=== PATIENT | male | born 1980 | race Caucasian/White ===

== ENCOUNTER 2016-06-17 17:29 | Emergency (ER) | payer BC ==
[2016-06-17] MEDS ORDERED: LIDOCAINE 1% 2 ML VIAL ONE (18:42)
== END 2016-06-17 19:12 | disposition home or self-care (01) ==
DX: S61.210A Laceration without foreign body of right index finger without damage to nail, initial encounter (principal); W45.8XXA Other foreign body or object entering through skin, initial encounter; Y93.H3 Activity, building and construction; Y92.008 Other place in unspecified non-institutional (private) residence as the place of occurrence of the external cause; R03.0 Elevated blood-pressure reading, without diagnosis of hypertension

== ENCOUNTER 2018-01-16 12:21 | Emergency (ER) | payer BC ==
[2018-01-16 12:35] VITALS: BP 144/77
--- NOTE | 2018-01-16 13:18 | ED Physician Documentation ---
PD HPI OPHTHO - Stated complaint Stated Complaint: L EYE F/O - Chief complaint Chief Complaint: Heent - History obtained from History obtained from: Patient - History of Present Illness Timing - onset: Today Timing - duration: Hours Timing - details: Abrupt onset (was sawing wood and got some sawdust blown into eyes with some wind christopher. Still has feeling of FB left eye.) Location: Left Quality / character: Aching Associated symptoms: FB sensation. No: Redness, Swelling, Decreased vision Contributing factors: FB (sawdust) Similar symptoms before: Has not had sx before Recently seen: Not recently seen Review of Systems Eyes: reports: Irritation. denies: Loss of vision, Decreased vision, Photophobia, Discharge Nose: denies: Rhinorrhea / runny nose, Congestion, Sinus pressure / pain Throat: denies: Sore throat Respiratory: denies: Cough PD PAST MEDICAL HISTORY - Past Medical History Respiratory: Asthma - Past Surgical History Past Surgical History: Yes General: Hiatal hernia repair, Other - Present Medications Home Medications: Ambulatory Orders Medication Instructions Recorded Confirmed Albuterol [Ventolin Hfa] 2 puffs INH Q4H PRN 05/18/13 05/18/13 Albuterol [Ventolin Hfa] 2 puffs INH Q4H PRN #1 inhaler 05/18/13 Budesonide [Pulmicort] 0.25 mg IH PRN 05/18/13 05/18/13 predniSONE [Deltasone] 60 mg PO DAILY 5 Days tablet 05/18/13 - Allergies Allergies/Adverse Reactions: Allergies Allergy/AdvReac Type Severity Reaction Status Date / Time loratadine [From Claritin] Allergy Respiratory Verified 05/18/13 00:16 - Social History Does the pt smoke?: No Smoking Status: Never smoker Does the pt drink ETOH?: No Does the pt have substance abuse?: No - Immunizations Immunizations are current?: Yes - POLST Patient has POLST: No PD ED PE NORMAL - Vitals Vital signs reviewed: Yes - General General: Alert and oriented X 3, No acute distress, Well developed/nourished - HEENT HEENT: PERRL, EOMI PD ED PE EXPANDED - Eyes Eyes: Eyelid embedded FB (underside lateral, swept away with qtip. ), Corneal abrasion (small at lateral upper area. ), Fluorescein uptake. No: Injected conj/sclera, Exudate, Corneal FB Results - Vitals Vitals: Oxygen O2 Source Room air PD MEDICAL DECISION MAKING - ED course Complexity details: considered differential, d/w patient Departure - Departure Disposition: 01 Home, Self Care Clinical Impression: Corneal foreign body Qualifiers: Encounter type: initial encounter Laterality: left Qualified Code(s): T15.02XA - Foreign body in cornea, left eye, initial encounter Corneal abrasion Qualifiers: Encounter type: initial encounter Laterality: left Qualified Code(s): S05.02XA - Injury of conjunctiva and corneal abrasion without foreign body, left eye, initial encounter Condition: Stable Record reviewed to determine appropriate education?: Yes Instructions: ED Eye Injury Corneal Abrasion Comments: Keep your eyes protected. Try to avoid dust and wind today. There is a small piece of wood that I swept out from under the lid and there is an abrasion on the surface of the eye. That should not prove over the day or so. Use the numbing drops if needed for discomfort. Do not use them if he can be out doing work. Do not use them more than a day or 2 as if it still bothering you at that point he need to recheck. Discharge Date/Time: 01/16/18 13:44
== END 2018-01-16 13:44 | disposition home or self-care (01) ==
LOC: ED 12:21
DX: T15.02XA Foreign body in cornea, left eye, initial encounter (principal); S00.252A Superficial foreign body of left eyelid and periocular area, initial encounter; X58.XXXA Exposure to other specified factors, initial encounter
CPT/HCPCS: 99282

== ENCOUNTER 2019-06-11 16:19 | Emergency (ER) | payer BC, OTHER ==
--- NOTE | 2019-06-11 16:21 | ED Physician Documentation ---
PD HPI UPPER EXT INJURY - Stated complaint Stated Complaint: RT INDEX FINGER LAC - History obtained from History obtained from: Patient - History of Present Illness Location: Right, Finger Type of injury: Laceration (He is working on some machinery and his tool slipped and his finger caught against a sharp edge of metal. Had a laceration out was still bleeding despite direct pressure. He denies any weakness of the finger movement. He states there is a slight numb spot just distal to the laceration on the dorsal middle phalanx. The laceration is on the radial side dorsal aspect just at the PIP joint.) Where injury occurred: Home Timing - onset: Today Timing - details: Abrupt onset Worsened by: Moving, Palpating Associated symptoms: Numbness (small patch numb just distal to the laceration around middle phalanx radial side.). No: Weakness Contributing factors: No: Anticoagulated Similar symptoms before: Has not had sx before Review of Systems Constitutional: denies: Fever, Chills Throat: denies: Sore throat Respiratory: denies: Cough Skin: reports: Laceration (s) Neurologic: denies: Focal weakness PD PAST MEDICAL HISTORY - Past Medical History Respiratory: Asthma - Past Surgical History Past Surgical History: Yes General: Hiatal hernia repair, Other - Present Medications Home Medications: Ambulatory Orders Medication Instructions Recorded Confirmed Albuterol [Ventolin Hfa] 2 puffs INH Q4H PRN 05/18/13 05/18/13 Albuterol [Ventolin Hfa] 2 puffs INH Q4H PRN #1 inhaler 05/18/13 Budesonide [Pulmicort] 0.25 mg IH PRN 05/18/13 05/18/13 predniSONE [Deltasone] 60 mg PO DAILY 5 Days tablet 05/18/13 - Allergies Allergies/Adverse Reactions: Allergies Allergy/AdvReac Type Severity Reaction Status Date / Time No Known Drug Allergies Allergy Verified 06/11/19 16:26 - Social History Does the pt smoke?: No Smoking Status: Never smoker Does the pt drink ETOH?: No Does the pt have substance abuse?: No - Immunizations Immunizations are current?: Yes - POLST Patient has POLST: No PD ED PE NORMAL - Vitals Vital signs reviewed: Yes - General General: Alert and oriented X 3, Well developed/nourished - Derm Derm: Normal color, Warm and dry - Neuro Neuro: Alert and oriented X 3, No motor deficit, Normal speech, Other (The patient has a laceration on the radial dorsal aspect at the proximal phalanx which is 1-1/2 cm and opens to the fatty tissue layer. No deep structures are identified. He has 5 out of 5 strength for extension and abduction showing abduction. There are no foreign bodies noted. There is still mild ongoing bleeding. There is 1 cm rounded area of numbness to pinprick just distal to the laceration. He has normal sensation at the tip.) Results - Vitals Vitals: Vital Signs - 24 hr 06/11/19 16:22 Temperature 36.5 C Heart Rate 78 Respiratory 16 Rate Blood Pressure 139/83 H O2 Saturation 95 Oxygen O2 Source Room air Procedures - Laceration (location) right index finger Length in cm: 1.5 Wound type: Curved Neurovascular status: Motor intact, Vascular intact Tendon involvement: Tendon intact Anesthesia: Lidocaine 1% with epi Wound Preparation: Irrigated copiously NS, Wound explored, To the base. No: FB identified Skin layer closure: Nylon, Running, Size #-0 - enter number (4), Sutures - enter # (6) Other: Patient tolerated well, No complications, Neurovascular intact, Dressing applied, Tetanus UTD (he believes it was less than 5 years) Complexity: Simple PD MEDICAL DECISION MAKING - ED course Complexity details: considered differential, d/w patient Departure - Departure Disposition: 01 Home, Self Care Clinical Impression: Finger laceration Qualifiers: Encounter type: initial encounter Finger: index finger Damage to nail status: without damage Foreign body presence: without foreign body Laterality: right Qualified Code(s): S61.210A - Laceration without foreign body of right index finger without damage to nail, initial encounter Condition: Stable Record reviewed to determine appropriate education?: Yes Instructions: ED Laceration Hand Follow-Up: Mary Jo Bundy MD [Primary Care Provider] - Comments: It is okay to wash and shower. Clean off the wound twice a day with soap and water, or peroxide and water. Apply some antibiotic ointment to it to keep it moist. Also to watch for signs of infection such as purulence, redness or increasing pain. Return to your primary care or the ER at the specified time for suture removal. Suture removal 9 or 10 days. Gentle use of the finger initially for couple of days and then on to regularly use progressively is okay.
[2019-06-11 16:26] VITALS: BP 139/83
== END 2019-06-11 17:20 | disposition home or self-care (01) ==
LOC: ED 16:19
DX: S61.210A Laceration without foreign body of right index finger without damage to nail, initial encounter (principal); W26.9XXA Contact with unspecified sharp object(s), initial encounter; Y93.89 Activity, other specified; Y92.009 Unspecified place in unspecified non-institutional (private) residence as the place of occurrence of the external cause
CPT/HCPCS: 12001; 99282; 99283

== ENCOUNTER 2020-09-21 03:12 | Emergency (ER) | payer OTHER ==
--- NOTE | 2020-09-21 03:28 | ED Physician Documentation ---
PD HPI HEENT - Stated complaint Stated Complaint: CHILLS/SORE THROAT - History obtained from History obtained from: Patient - History of Present Illness Timing - onset: How many days ago (3) Timing - duration: Days (3) Timing - details: Gradual onset, Still present Location: Right ear, Left ear, Throat Improves: Medication Worsens: Swalllowing Associated symptoms: Congestion, Rhinorrhea, Headache, Other (shaking chills and myalgias) Similar symptoms before: Diagnosis (tonsillits) Recently seen: Not recently seen - Additional information Additional information: 40-year-old male with a remote history of recurrent tonsillitis has symptoms consistent with what is had previously with tonsillitis. He has a sore throat and is developed some muscle aches and pains and this evening when he developed chills excessively his asked him to come to the emergency department to be evaluated. He has had his Covid vaccinations and he is worried about the possibility of Covid. Review of Systems Constitutional: reports: Chills, Myalgias, Fatigue, Sweats. denies: Fever Eyes: denies: Decreased vision Ears: reports: Ear pain Nose: reports: Rhinorrhea / runny nose, Congestion Throat: reports: Sore throat Cardiac: denies: Chest pain / pressure, Palpitations Respiratory: denies: Dyspnea, Cough GI: denies: Abdominal Pain, Nausea, Vomiting : denies: Dysuria, Frequency PD PAST MEDICAL HISTORY - Past Medical History Cardiovascular: Coronary artery disease Respiratory: Asthma Neuro: None Endocrine/Autoimmune: None GI: None : None HEENT: None Psych: None Musculoskeletal: None Derm: None - Past Surgical History Past Surgical History: Yes General: Hiatal hernia repair, Other - Present Medications Home Medications: Ambulatory Orders Medication Instructions Recorded Confirmed Albuterol [Ventolin Hfa] 2 puffs INH Q4H PRN 05/18/13 05/18/13 Albuterol [Ventolin Hfa] 2 puffs INH Q4H PRN #1 inhaler 05/18/13 Budesonide [Pulmicort] 0.25 mg IH PRN 05/18/13 05/18/13 predniSONE [Deltasone] 60 mg PO DAILY 5 Days tablet 05/18/13 Amoxicillin 875 mg PO BID #20 tablet 09/21/20 - Allergies Allergies/Adverse Reactions: Allergies Allergy/AdvReac Type Severity Reaction Status Date / Time No Known Drug Allergies Allergy Verified 09/21/20 03:32 - Social History Does the pt smoke?: No Smoking Status: Never smoker Does the pt drink ETOH?: No Does the pt have substance abuse?: No - Immunizations Immunizations are current?: Yes - POLST Patient has POLST: No PD ED PE NORMAL - Vitals Vital signs reviewed: Yes (Hypertensive afebrile) - General General: Alert and oriented X 3, No acute distress, Well developed/nourished - HEENT HEENT: Atraumatic, PERRL, EOMI, Ears normal, Other (Pharynx is generally erythematous mild swelling with some exudate to the right side) - Neck Neck: Supple, no meningeal sign, No bony TTP - Cardiac Cardiac: RRR, No murmur - Respiratory Respiratory: No respiratory distress, Clear bilaterally - Abdomen Abdomen: Soft, Non tender - Back Back: No CVA TTP, No spinal TTP - Derm Derm: Normal color, Warm and dry, No rash - Extremities Extremities: No deformity, No edema - Neuro Neuro: Alert and oriented X 3, 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 parapertussis DNA (PCR) NOT DETECTED Nasal Coronavir 229E PCR NOT DETECTED Nasal Coronavir HKU1 PCR NOT DETECTED Nasal Coronavir NL63 PCR NOT DETECTED Nasal Coronavir OC43 PCR NOT DETECTED Nasal Enterovir/Rhinovir PCR NOT DETECTED Nasal Influenza B PCR NOT DETECTED Nasal Influenza A PCR NOT DETECTED Nasal Parainfluen 1 PCR NOT DETECTED Nasal Parainfluen 2 PCR NOT DETECTED Nasal Parainfluen 3 PCR NOT DETECTED Nasal Parainfluen 4 PCR NOT DETECTED Nasal RSV (PCR) NOT DETECTED Nasal B.pertussis DNA PCR NOT DETECTED Nasal C.pneumoniae (PCR) NOT DETECTED Gio Human Metapneumo PCR NOT DETECTED Nasal M.pneumoniae (PCR) NOT DETECTED Nasal SARS-CoV-2 (PCR) NOT DETECTED Group A Strep Rapid Negative PD MEDICAL DECISION MAKING - ED course Complexity details: reviewed results, re-evaluated patient, considered differential, d/w patient ED course: 40-year-old male with acute sore throat myalgias and chills is worried about Covid and comes into the emergency department at 3:30 in the morning. We have swabbed the patient's throat for strep and we have run a viral PCR and we are providing some dexamethasone. Departure - Departure Disposition: Home, Self Care Clinical Impression: Pharyngitis Qualifiers: Pharyngitis/tonsillitis etiology: unspecified etiology Qualified Code(s): J02.9 - Acute pharyngitis, unspecified Condition: Stable Instructions: ED Strep Pharyngitis Poss Follow-Up: Mary Jo Bundy MD [Primary Care Provider] - Prescriptions: Amoxicillin 875 mg PO BID #20 tablet
[2020-09-21] MEDS ORDERED: DEXAMETHASONE 10 MG/ML VIAL PO STA (03:39)
[2020-09-21] MEDS ORDERED: CHERRY SYRUP 10 ML UDC PO ONE (03:39)
[2020-09-21 04:00] LABS: RAPID STREP SCREEN Negative (Negative)
[2020-09-21 04:42] LABS: B. PARAPERTUSSIS- RESP PCR PAN NOT DETECTED; B. PERTUSSIS- RESP PCR PANEL NOT DETECTED; C. PNEUMONIAE- RESP PCR PANEL NOT DETECTED; CORONAVIRUS 229E-RESP PCR NOT DETECTED; CORONAVIRUS HKU1-RESP PCR NOT DETECTED; CORONAVIRUS NL63-RESP PCR NOT DETECTED; CORONAVIRUS OC43-RESP PCR NOT DETECTED; HUMAN METAPNEUMOVIRUS NOT DETECTED; INFLUENZA A- RESP PCR PANEL NOT DETECTED; INFLUENZA B - RESP PCR PANEL NOT DETECTED; M. PNEUMONIAE- RESP PCR PANEL NOT DETECTED; PARAINFLUENZA VIRUS 1 NOT DETECTED; PARAINFLUENZA VIRUS 2 NOT DETECTED; PARAINFLUENZA VIRUS 3 NOT DETECTED; PARAINFLUENZA VIRUS 4 NOT DETECTED; RHINOVIRUS/ENTEROVIRUS NOT DETECTED; RSV- RESP PCR PANEL NOT DETECTED; SARS-CoV-2 -RESP PCR PANEL NOT DETECTED
[2020-09-21 05:30] VITALS: BP 134/83
== END 2020-09-21 05:29 | disposition home or self-care (01) ==
LOC: ED 03:12
DX: J02.9 Acute pharyngitis, unspecified (principal); Z20.822 Contact with and (suspected) exposure to COVID-19
CPT/HCPCS: 0202U; 87070; 87430; 99283; 99284; A9270

== ENCOUNTER 2023-05-23 23:33 | Emergency (ER) | payer OTHER ==
[2023-05-23 23:44] VITALS: BP 132/82; O2SAT 94
--- NOTE | 2023-05-24 00:25 | ED Physician Documentation ---
PD HPI NVD - Stated complaint Stated Complaint: VOMITING/CHILLS - Chief complaint Chief Complaint: Abd Pain - History obtained from History obtained from: Patient - Additonal information Additional information: Patient comes to the emergency department chief complaint of nausea and vomiting that started this evening around 2030. He states that he had been feeling fine earlier but after dinner, he felt very full like the food was not digesting well. He began to get increasingly nauseated and finally began vomiting. He states he has emptied his stomach and now is just dry heaving. No diarrhea. No abdominal pain other than some burning in the epigastrium. Patient states he is otherwise fairly healthy. No one who ate the same food is him is sick, and no one around him has been sick. The patient takes Flonase and some allergy meds but otherwise does not take anything else. PD PAST MEDICAL HISTORY - Past Medical History Past Medical History: Yes Cardiovascular: Coronary artery disease Respiratory: Asthma Neuro: None Endocrine/Autoimmune: None GI: Other : None HEENT: None Psych: None Musculoskeletal: None Derm: None Other Past Medical History: Pyloric stenosis, micaela mountain fever - Past Surgical History Past Surgical History: Yes General: Hiatal hernia repair, Other - Present Medications Home Medications: Ambulatory Orders Medication Instructions Recorded Confirmed Fluticasone Propion/Salmeterol 1 puffs INH DAILY 05/23/23 05/23/23 [Wixela [id number] Inhub] Fluticasone [Flonase] 1 spr BELGICA DAILY 05/23/23 05/23/23 Loratadine [Claritin] 10 mg PO DAILY 05/23/23 05/23/23 Ondansetron Odt [Zofran] 4 mg TL Q6H PRN #20 tablet 05/24/23 - Allergies Allergies/Adverse Reactions: Allergies Allergy/AdvReac Type Severity Reaction Status Date / Time hydrocodone AdvReac Nausea Verified 05/23/23 23:45 oxycodone AdvReac Nausea Verified 05/23/23 23:45 - Social History Does the pt smoke?: No Smoking Status: Never smoker Does the pt drink ETOH?: No Does the pt have substance abuse?: No - Immunizations Immunizations are current?: Yes - POLST Patient has POLST: No PD ED PE NORMAL - Vitals Vital signs reviewed: Yes - General General: No acute distress, Well developed/nourished, Other (The patient is awake and answers questions appropriately but does appear to not feel well. He is in no distress.) - HEENT HEENT: Atraumatic, PERRL, EOMI, Moist mucous membranes - Neck Neck: Supple, no meningeal sign - Cardiac Cardiac: RRR, No murmur - Respiratory Respiratory: No respiratory distress, Clear bilaterally - Abdomen Abdomen: Soft, Non distended, Other (Mild epigastric tenderness, no rebound or guarding) - Derm Derm: Normal color, Warm and dry, No rash - Extremities Extremities: No deformity - Neuro Neuro: Alert and oriented X 3 - Psych Psych: Normal mood, Normal affect Results - Vitals Vitals: Vital Signs - 24 hr 05/23/23 23:34 Temperature 37.4 C Heart Rate 101 H Respiratory 16 Rate Blood Pressure 132/82 H O2 Saturation 94 Oxygen O2 Source Room air - Labs Labs: Laboratory Tests 05/24/23 05/24/23 00:20 00:20 WBC 8.6 RBC 5.74 Hgb 17.2 Hct 50.3 MCV 87.6 MCH 30.0 MCHC 34.2 RDW 12.1 Plt Count 179 MPV 11.3 Neut # (Auto) 7.5 H Lymph # (Auto) 0.4 L [place] # (Auto) 0.5 Eos # (Auto) 0.3 Baso # (Auto) 0.0 Absolute Nucleated RBC 0.00 Nucleated RBC % 0.0 Sodium 139 Potassium 4.0 Chloride 103 Carbon Dioxide 27 Anion Gap 9.0 BUN 17 Creatinine 1.2 Estimated GFR (MDRD) 66 L Glucose 116 H Calcium 9.7 Total Bilirubin 0.9 AST 35 ALT 92 H Alkaline Phosphatase 53 Total Protein 7.2 Albumin 4.6 Globulin 2.6 Albumin/Globulin Ratio 1.8 Lipase 30 PD Medical Decision Making - ED course Complexity details: reviewed results, re-evaluated patient, considered differential, d/w patient, d/w family ED course: The patient was treated symptomatically in the emergency department IV fluids and droperidol. He was worked up with laboratory studies, which looked good. Pt was feeling much better on re-evaluation, and I have sent a prescription for Zofran to the pharmacy of pt's choice. We have discussed the usual indications for return. He is discharged with his . Departure - Departure Disposition: 01 Home, Self Care Clinical Impression: Vomiting Qualifiers: Vomiting type: bilious vomiting Nausea presence: with nausea Qualified Code(s): R11.14 - Bilious vomiting Condition: Stable Instructions: ED Nausea Vomiting Prescriptions: Ondansetron Odt [Zofran] 4 mg TL Q6H PRN #20 tablet PRN Reason: Nausea / Vomiting Comments: Your laboratory studies look good. You have been treated with IV fluids and an antinausea medicine. Please go home and get plenty of rest. Do not try to drink anything and definitely do not try to eat anything when you get home. Just go to bed and sleep and when you wake up, if your stomach is feeling up to it, try taking a couple sips of water or a couple of ice chips. Give yourself 20 or 30 minutes to make sure this stays down. If it does, you may try another couple of sips or chips. If you go through several cycles of this successfully, you may begin moving the sips and chips closer together. If you get through the whole day without throwing up at all on clear liquids, you may plan to try some simple starches like saltine crackers and Ramen noodles the next day. A prescription for an antinausea medication has been electronically transmitted to the [facility] pharmacy in [place] for you. You may pick this up in the morning. Most likely, you have picked up one of the many viral illnesses that are going around and causing similar symptoms. It is possible also that you are sick because of something in the food you ate, though this is less likely. Either way, the symptoms will resolve on their own given time. Forms: PCP List Discharge Date/Time: 05/24/23 01:30
[2023-05-24] MEDS: SODIUM CHLORIDE 0.9% 1,000 ML IV STA (00:28)
[2023-05-24] MEDS: DROPERIDOL 5 MG/2 ML VIAL IVP STA (00:28)
[2023-05-24 00:37] LABS: BASOPHILS % (AUTO) 0.3 %; EOSINOPHILS # (AUTO) 0.3 10^3/uL (0.0-0.7); HCT - HEMATOCRIT 50.3 % (42.0-52.0); HGB - HEMOGLOBIN 17.2 g/dL (14.0-18.0); LYMPHOCYTES # (AUTO) 0.4 10^3/uL (1.5-3.5); LYMPHOCYTES % (AUTO) 4.5 %; MEAN CORPUSCULAR HGB CONC 34.2 g/dL (32.0-36.0); MEAN CORPUSCULAR VOLUME 87.6 fL (80.0-94.0); MEAN PLATELET VOLUME 11.3 fL (7.4-11.4); MONOCYTES # (AUTO) 0.5 10^3/uL (0.0-1.0); MONOCYTES % (AUTO) 5.3 %; NEUTROPHILS # (AUTO) 7.5 10^3/uL (1.5-6.6); NEUTROPHILS % (AUTO) 86.8 %; PLT - PLATELET COUNT 179 10^3/uL (130-450); RED BLOOD COUNT 5.74 10^6/uL (4.70-6.10); RED CELL DISTRIBUTION WIDTH 12.1 % (12.0-15.0); WHITE BLOOD COUNT 8.6 x10^3/uL (4.8-10.8)
[2023-05-24 00:54] LABS: ALBUMIN 4.6 g/dL (3.2-5.5); ALBUMIN/GLOBULIN RATIO 1.8 (1.0-2.2); BILIRUBIN,TOTAL 0.9 mg/dL (0.2-1.0); CALCIUM 9.7 mg/dL (8.5-10.3); CREATININE 1.2 mg/dL (0.6-1.3); TOTAL PROTEIN 7.2 g/dL (6.4-8.9)
== END 2023-05-24 01:30 | disposition home or self-care (01) ==
LOC: ED 23:33
DX: R11.14 Bilious vomiting (principal); I25.10 Atherosclerotic heart disease of native coronary artery without angina pectoris; J45.909 Unspecified asthma, uncomplicated
CPT/HCPCS: 36415; 80053; 83690; 85025; 96374; 99283